=== PATIENT | male | born 1995 | race African-American/Black ===

== ENCOUNTER 2024-09-09 08:34 | Emergency (ER) | payer SELFPAY ==
[2024-09-09] MEDS ORDERED: Ibuprofen 800 MG TAB ONE (10:11)
[2024-09-09 11:10] LABS: Troponin I Less than 0.010 ng/mL (< 0.028)
[2024-09-09] MEDS ORDERED: Acetaminophen 500 MG TAB ONE (11:33)
[2024-09-09] MEDS ORDERED: predniSONE 20 MG TAB ONE (11:34)
== END 2024-09-09 12:12 | disposition home or self-care (01) ==
LOC: ERS 08:34
DX: R07.9 Chest pain, unspecified (principal); F41.9 Anxiety disorder, unspecified; Z87.891 Personal history of nicotine dependence
CPT/HCPCS: 36415; 71045; 84484; 93005; J7512